=== PATIENT | female | born 1970 | race Caucasian/White ===

== ENCOUNTER 2019-04-15 17:04 | Inpatient (IN) | payer OTHER ==
[2019-04-15] MEDS ORDERED: DILTIAZEM HCL INJ 25 MG/5 ML VIAL ONE (17:27)
[2019-04-15] MEDS ORDERED: DILTIAZEM HCL/D5W 125 MG/125 ML RTUINJ IV ONE (17:28)
[2019-04-15] MEDS ORDERED: DILTIAZEM HCL INJ 25 MG/5 ML VIAL IV ONE (17:31)
--- NOTE | 2019-04-15 17:36 | ER Document Report ---
ED Cardiac - General Stated Complaint: CHEST PAIN Time Seen by Provider: 04/15/19 17:13 Mode of Arrival: Medic Information source: Patient Notes: Patient presented to EMS with chest pain and palpitations. In the field patient was cardioverted from a rate of 250 down to a rate below 100 however shortly thereafter went back up to the 160 range with A. fib with RVR on the monitor per EMS. When patient arrived here she was on a 5 mg/h drip of Cardizem heart rate was still in the 140s. Therefore patient was bolused with 20 mg IV Cardizem and increased the dose from 10 and then to 15 mg/h heart rate now is in the 80s. Patient no longer has any chest pain or shortness of breath. - HPI Patient complains to provider of: Chest pain, Palpitations Was the onset of pain: Sudden Chest pain location: Substernal Quality of pain: Constant Chest pain radiation location: denies: Left jaw, Left arm, Left shoulder, Right jaw, Right arm, Right shoulder, Neck Severity now: Mild Severity at worst: Moderate Pain level currently: 2 Cardiac risk factors: denies: Diabetes, Hypertension, Smoker, + Family history, Dyslipidemia Positive cardiac history: Yes Associated symptoms: denies: Abdominal pain Exacerbated by: Denies Relieved by: Other - cardioversion and cardizem - Related Data Allergies/Adverse Reactions: No Known Allergies Allergy (Unverified 04/15/19 17:54) Past Medical History - General Information source: Patient - Social History Smoking Status: Never Smoker Frequency of alcohol use: None Drug Abuse: None Lives with: Family Family History: None - Medical History Medical History: Other - hx svt and afib - Past Medical History Cardiac Medical History: Reports: Hx Atrial Fibrillation Pulmonary Medical History: Reports: None Review of Systems - Review of Systems Constitutional: denies: Chills, Diaphoresis Cardiovascular: Chest pain, Palpitations, Heart racing. denies: Dyspnea, Syncope, Dizziness Respiratory: denies: Cough, Hurts to breathe, Short of breath Gastrointestinal: denies: Abdomen distended, Abdominal pain -: Yes All other systems reviewed and negative Physical Exam - Vital signs Vitals: Resp 27 H 04/15/19 17:12 - General General appearance: Appears well In distress: Mild - HEENT Head: Normocephalic Eyes: Normal Conjunctiva: Normal Cornea: Normal Extraocular movements intact: Yes Pupils: PERRL - Respiratory Respiratory status: No respiratory distress Chest status: Nontender Breath sounds: Normal Chest palpation: Normal - Cardiovascular Rhythm: Irregularly irregular, Tachycardia - note after intervention still irreg irreg but not tachycardic - Abdominal Inspection: Normal Distension: No distension Bowel sounds: Normal Tenderness: Nontender Organomegaly: No organomegaly - Back Back: CVA tenderness - Extremities General upper extremity: Normal inspection General lower extremity: Normal inspection Shoulder: Normal Arm: Normal Elbow: Normal Forearm: Normal Wrist: Normal Hand: Normal Hip: Normal Thigh: Normal Knee: Normal Calf: Normal Ankle: Normal Foot: Normal - Neurological Cognition: Normal Orientation: AAOx4 Speech: Normal Cranial nerves: Normal Cerebellar coordination: Normal Motor strength normal: LUE 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 fib rate of 139 with rate related changes and LVH. After Cardizem bolus and on the drip 10 mg/h patient is in A. fib with a rate of [address] elevation flipped T or ectopy noted Discharge - Discharge Clinical Impression: Atrial fibrillation with RVR Condition: Fair Disposition: ADMITTED INPATIENT Admitting Provider: Tammie (Hospitalist) Unit Admitted: Telemetry
[2019-04-15 18:01] LABS: INTERNATIONAL RATION (INR) 1.13; PROTHROMBIN TIME 14.5 SEC (11.4-15.4)
[2019-04-15 18:07] LABS: ALBUMIN 4.3 g/dL (3.5-5.0); ALKALINE PHOSPHATASE 114 U/L (38-126); ANION GAP 15 (5-19); ASPARTATE AMINO TRANSFERASE 65 U/L (14-36); BILIRUBIN,DIRECT 0.3 mg/dL (0.0-0.4); BILIRUBIN,TOTAL 0.4 mg/dL (0.2-1.3); BLOOD UREA NITROGEN 13 mg/dL (7-20); CALCIUM 9.3 mg/dL (8.4-10.2); CARBON DIOXIDE 22 mmol/L (22-30); CHLORIDE 100 mmol/L (98-107); CREATINE KINASE 55 U/L (30-135); GLUCOSE 194 mg/dL (75-110); TOTAL PROTEIN 7.3 g/dL (6.3-8.2)
[2019-04-15] MEDS ORDERED: DILTIAZEM HCL/D5W 125 MG/125 ML RTUINJ IV PRN ×2 (18:14→20:24)
[2019-04-15 18:19] LABS: CREATINE KINASE MB 0.31 ng/mL (<4.55); TROPONIN I 0.022 ng/mL
--- NOTE | 2019-04-15 18:21 | RADIOLOGY REPORT (SQ) ---
EXAM DESCRIPTION: CHEST SINGLE VIEW COMPLETED DATE/TIME: 04/15/2019 5:54 pm REASON FOR STUDY: cp COMPARISON: None. EXAM PARAMETERS: NUMBER OF VIEWS: One view. TECHNIQUE: Single frontal radiographic view of the chest acquired. RADIATION DOSE: NA LIMITATIONS: None. FINDINGS: LUNGS AND PLEURA: No opacities, masses or pneumothorax. No pleural effusion. MEDIASTINUM AND HILAR STRUCTURES: No masses. Contour normal. HEART AND VASCULAR STRUCTURES: Heart normal in size. Normal vasculature. BONES: No acute findings. HARDWARE: Surgical clips overlie chest and axilla. OTHER: No other significant finding. IMPRESSION: No evidence of acute cardiopulmonary process. TECHNICAL DOCUMENTATION: JOB ID: [id number] [employer]- All Rights Reserved Reading location - IP/workstation name: [email or web address]
[2019-04-15 18:56] LABS: ABSOLUTE EOSINOPHILS # (AUTO) 0.5 10^3/uL (0.0-0.6); ABSOLUTE LYMPHOCYTES (AUTO) 2.9 10^3/uL (0.5-4.7); ABSOLUTE MONOCYTES (AUTO) 0.7 10^3/uL (0.1-1.4); ABSOLUTE NEUT (AUTO) 5.5 10^3/uL (1.7-8.2); BASOPHILS % (AUTO) 0.5 % (0-2); EOSINOPHILS % (AUTO) 4.8 % (0-6); HEMATOCRIT 37.3 % (36.0-47.0); HEMOGLOBIN 12.2 g/dL (12.0-15.5); MEAN CORPUSCULAR HEMOGLOBIN 26.8 pg (27.0-33.4); MEAN CORPUSCULAR HGB CONC 32.8 g/dL (32.0-36.0); MEAN CORPUSCULAR VOLUME 82 fl (80-97); MONOCYTES % (AUTO) 7.5 % (3-13); PLATELET COUNT 300 10^3/uL (150-450); RED BLOOD COUNT 4.56 10^6/uL (3.72-5.28); RED CELL DISTRIBUTION WIDTH 13.5 % (11.5-14.0); SEGMENTED NEUTROPHILS % (AUTO) 57.2 % (42-78); TOTAL CELLS COUNTED % (AUTO) 100 %; WHITE BLOOD COUNT 9.5 10^3/uL (4.0-10.5)
[2019-04-15] MEDS ORDERED: MAGNESIUM SULFATE/D5W 1 GM/100 ML RTUPB IV ONE ×2 (19:33→21:15)
[2019-04-15] MEDS ORDERED: ONDANSETRON HCL INJ/PF 4 MG/2 ML SDV IV PRN (20:17)
[2019-04-15] MEDS ORDERED: MAGNESIUM HYDROXIDE SUSP 30 ML UDCUP PO PRN (20:17)
[2019-04-15] MEDS ORDERED: MAG HYDROX/AL HYDROX/SIMETH SUSP 30 ML UDCUP PO PRN (20:17)
[2019-04-15] MEDS ORDERED: DEXTROSE 40% GEL 15 GM TUBE PO PRN ×2 (20:21)
[2019-04-15] MEDS ORDERED: DEXTROSE 50%-WATER 25 GM/50 ML DISP.SYRIN IV PRN ×2 (20:21)
[2019-04-15] MEDS ORDERED: GLUCAGON,HUMAN RECOMB 1 MG INJ IM PRN (20:21)
[2019-04-15] MEDS ORDERED: ACETAMINOPHEN 325 MG TABLET PO PRN (20:22)
[2019-04-15] MEDS ORDERED: METOPROLOL TARTRATE PF/INJ 5 MG/5 ML SDV IV PRN (20:22)
[2019-04-15] MEDS ORDERED: HYDRALAZINE HCL INJ/PF 20 MG/1 ML SDV IV PRN (20:22)
[2019-04-15] MEDS ORDERED: MORPHINE SULFATE 10 MG/ML INJ IV PRN ×4 (20:22→20:32)
[2019-04-15 21:21] LABS: FREE T3 4.69 pg/mL (2.77-5.27); FREE T4 (FREE THYROXINE) 1.34 ng/dL (0.78-2.19)
[2019-04-15 21:34] LABS: THYROID STIMULATING HORMONE 2.85 uIU/mL (0.47-4.68)
[2019-04-15] MEDS: ATORVASTATIN CALCIUM 20 MG TABLET PO SCH (21:50)
[2019-04-15] MEDS: FAMOTIDINE 20 MG TABLET PO SCH (21:50)
[2019-04-15] MEDS: ENOXAPARIN SODIUM INJ 120 MG/0.8 ML DISP.SYRIN SUBCUT SCH (21:53)
[2019-04-15] MEDS: INSULIN REG, HUMAN 100 UNIT/ML 3 ML VIAL (PYX) SUBCUT SCH (22:10)
[2019-04-15] MEDS: ZOLPIDEM TARTRATE 5 MG TABLET PO PRN (22:11)
[2019-04-15 22:31] LABS: APPEARANCE,URINE SLIGHTLY-CLOUDY; BILIRUBIN,URINE NEGATIVE (NEGATIVE); COLOR,URINE YELLOW; GLUCOSE, URINE NEGATIVE (NEGATIVE); KETONES,URINE NEGATIVE (NEGATIVE); LEUKOCYTE ESTERASE,URINE NEGATIVE (NEGATIVE); NITRITE,URINE NEGATIVE (NEGATIVE); PROTEIN,URINE NEGATIVE (NEGATIVE); URINE SPECIFIC GRAVITY 1.013; UROBILINOGEN,URINE NEGATIVE mg/dL (<2.0)
[2019-04-15 23:46] LABS: CREATINE KINASE MB 1.45 ng/mL (<4.55)
[2019-04-15 23:58] LABS: TROPONIN I 0.915 ng/mL
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
[2019-04-16] MEDS ORDERED: DILTIAZEM HCL 30 MG TABLET ONE ×2 (00:51→05:18)
[2019-04-16] MEDS ORDERED: DILTIAZEM HCL 60 MG TABLET ONE ×2 (00:51→05:18)
[2019-04-16 05:34] LABS: HEMATOCRIT 34.3 % (36.0-47.0); HEMOGLOBIN 11.4 g/dL (12.0-15.5); MEAN CORPUSCULAR HEMOGLOBIN 27.2 pg (27.0-33.4); MEAN CORPUSCULAR HGB CONC 33.3 g/dL (32.0-36.0); MEAN CORPUSCULAR VOLUME 82 fl (80-97); PLATELET COUNT 283 10^3/uL (150-450); RED CELL DISTRIBUTION WIDTH 13.7 % (11.5-14.0)
[2019-04-16 05:53] LABS: ANION GAP 11 (5-19); BLOOD UREA NITROGEN 13 mg/dL (7-20); CALCIUM 8.9 mg/dL (8.4-10.2); CARBON DIOXIDE 23 mmol/L (22-30); CHLORIDE 103 mmol/L (98-107); CHOLESTEROL 118.86 mg/dL (0-200); GLUCOSE 193 mg/dL (75-110); POTASSIUM 3.8 mmol/L (3.6-5.0); TRIGLYCERIDES 228 mg/dL (<150)
[2019-04-16] MEDS ORDERED: DILTIAZEM HCL 90 MG TABLET PO SCH ×2 (06:00→14:00)
[2019-04-16 06:05] LABS: CREATINE KINASE MB 1.7 ng/mL (<4.55); DIRECT LDL 81 mg/dL (<100); TROPONIN I 0.622 ng/mL
[2019-04-16 06:07] LABS: VLDL CHOLESTEROL 45.6 mg/dL (10-31)
[2019-04-16] MEDS ORDERED: METFORMIN HCL 500 MG TABLET PO SCH (08:00)
[2019-04-16] MEDS ORDERED: SITAGLIPTIN PHOSPHATE 50 MG TABLET PO SCH (08:00)
[2019-04-16] MEDS: INSULIN REG, HUMAN 100 UNIT/ML 3 ML VIAL (PYX) SUBCUT SCH ×4 (08:46→21:48)
[2019-04-16] MEDS: DOCUSATE SODIUM 100 MG CAPSULE PO SCH ×2 (09:15→17:20)
[2019-04-16] MEDS: INSULIN GLARGINE,HUM.REC.ANLOG 1,000 UNIT/10 ML VIAL SUBCUT SCH ×2 (09:15→21:48)
[2019-04-16] MEDS: FAMOTIDINE 20 MG TABLET PO SCH ×2 (09:15→21:48)
[2019-04-16] MEDS: ENOXAPARIN SODIUM INJ 120 MG/0.8 ML DISP.SYRIN SUBCUT SCH (09:15)
--- NOTE | 2019-04-16 09:18 | PDOC PROGRESS REPORT ---
Subjective Progress Note for:: 04/16/19 Subjective:: 48 year old female who presented to the emergency room via EMS with a acute heart palpitations. She admits the sudden onset of palpitations this afternoon for which she summoned EMS immediately. Palpitations were associated with a constant, moderately intense substernal chest pressure without radiation and moderate dyspnea at rest worsened with any exertion. She denies other associated or accompanying signs and symptoms. She admits a prior similar episode due to a paroxysmal occurrence of atrial fibrillation. She denies identification of any aggravating or ameliorating factors for her heart palpitations. EMS initially treated the patient with cardioversion (as her atrial fibrillation heart rate was greater than 250 and she was symptomatic) followed by a diltiazem bolus and infusion. Upon her arrival in the emergency room patient was re-bolused with diltiazem and her infusion rate was increased in order to gain adequate control of her atrial fibrillation with rapid ventricular response. Patient was subsequently admitted to the IMCU for further evaluation treatment. 04/16/2019-patient admitted with Beatris hobson with RVR cardioverted by EMS on the way to the hospital received IV Cardizem in the ER now on p.o. Cardizem with heart rate of around 57. Asymptomatic. Comfortable in the bed communicating well. Reason For Visit: PAROXYSMAL ATRIAL FIBRILLATION WITH RAPID Physical Exam Vital Signs: Temp Pulse Resp BP Pulse Ox 97.4 F 57 L 18 123/59 L 95 04/16/19 08:09 04/16/19 08:09 04/16/19 08:09 04/16/19 08:09 04/16/19 08:09 Intake & Output 04/15/19 04/16/19 04/17/19 06:59 06:59 06:59 Intake Total 535 Balance 535 Weight 109 kg General appearance: PRESENT: no acute distress, morbidly obese Head exam: PRESENT: atraumatic Eye exam: PRESENT: PERRLA Mouth exam: PRESENT: moist, tongue midline Teeth exam: PRESENT: poor dentation Neck exam: ABSENT: carotid bruit, JVD, lymphadenopathy, thyromegaly Respiratory exam: PRESENT: clear to auscultation neema. ABSENT: rales, rhonchi, wheezes Cardiovascular exam: PRESENT: bradycardia. ABSENT: systolic murmur Pulses: PRESENT: normal dorsalis pedis pul GI/Abdominal exam: PRESENT: normal bowel sounds, soft. ABSENT: distended, guarding, mass, organolmegaly, rebound, tenderness Rectal exam: PRESENT: deferred Extremities exam: PRESENT: full ROM. ABSENT: calf tenderness, clubbing, pedal edema Neurological exam: PRESENT: alert, awake, oriented to person, oriented to place, oriented to time, oriented to situation, CN II-XII grossly intact. ABSENT: motor sensory deficit Psychiatric exam: PRESENT: appropriate affect, normal mood. ABSENT: homicidal ideation, suicidal ideation Results Laboratory Results: 04/16/19 05:21 04/16/19 05:21 04/15/19 04/15/19 04/15/19 17:17 17:17 17:17 WBC 9.5 RBC 4.56 Hgb 12.2 Hct 37.3 MCV 82 MCH 26.8 L MCHC 32.8 RDW 13.5 Plt Count 300 Seg Neutrophils % 57.2 Sodium 137.3 Potassium 4.0 Chloride 100 Carbon Dioxide 22 Anion Gap 15 BUN 13 Creatinine 0.74 Est GFR ( Amer) > 60 Glucose 194 H Lactic Acid Calcium 9.3 Magnesium 1.3 L Total Bilirubin 0.4 AST 65 H Alkaline Phosphatase 114 Total Protein 7.3 Albumin 4.3 Triglycerides Cholesterol LDL Cholesterol Direct VLDL Cholesterol HDL Cholesterol TSH 2.85 Free T4 1.34 Free T3 pg/mL 4.69 Urine Color Urine Appearance Urine pH Ur Specific Mcdavid Urine Protein Urine Glucose (UA) Urine Ketones Urine Blood Urine Nitrite Ur Leukocyte Esterase Urine WBC (Auto) Urine RBC (Auto) 04/15/19 04/15/19 04/16/19 18:30 19:00 05:21 WBC 8.0 RBC 4.20 Hgb 11.4 L Hct 34.3 L MCV 82 MCH 27.2 MCHC 33.3 RDW 13.7 Plt Count 283 Seg Neutrophils % Sodium Potassium Chloride Carbon Dioxide Anion Gap BUN Creatinine Est GFR ( Amer) Glucose Lactic Acid 3.2 H Calcium Magnesium Total Bilirubin AST Alkaline Phosphatase Total Protein Albumin Triglycerides Cholesterol LDL Cholesterol Direct VLDL Cholesterol HDL Cholesterol TSH Free T4 Free T3 pg/mL Urine Color YELLOW Urine Appearance SLIGHTLY-CLOUDY Urine pH 5.0 Ur Specific Mcdavid 1.013 Urine Protein NEGATIVE Urine Glucose (UA) NEGATIVE Urine Ketones NEGATIVE Urine Blood NEGATIVE Urine Nitrite NEGATIVE Ur Leukocyte Esterase NEGATIVE Urine WBC (Auto) 2 Urine RBC (Auto) 1 04/16/19 05:21 WBC RBC Hgb Hct MCV MCH MCHC RDW Plt Count Seg Neutrophils % Sodium 137.4 Potassium 3.8 Chloride 103 Carbon Dioxide 23 Anion Gap 11 BUN 13 Creatinine 0.60 Est GFR ( Amer) > 60 Glucose 193 H Lactic Acid Calcium 8.9 Magnesium 2.1 Total Bilirubin AST Alkaline Phosphatase Total Protein Albumin Triglycerides 228 H Cholesterol 118.86 LDL Cholesterol Direct 81 VLDL Cholesterol 45.6 H HDL Cholesterol 29 L TSH Free T4 Free T3 pg/mL Urine Color Urine Appearance Urine pH Ur Specific Mcdavid Urine Protein Urine Glucose (UA) Urine Ketones Urine Blood Urine Nitrite Ur Leukocyte Esterase Urine WBC (Auto) Urine RBC (Auto) 04/15/19 04/15/19 04/15/19 17:17 17:17 23:09 Creatine Kinase 55 63 CK-MB (CK-2) 0.31 Troponin I 0.022 04/15/19 04/16/19 04/16/19 23:09 05:21 05:21 Creatine Kinase 58 CK-MB (CK-2) 1.45 1.70 Troponin I 0.915 0.622 Impressions: Chest X-Ray 04/15/19 17:35 IMPRESSION: No evidence of acute cardiopulmonary process. Assessment and Plan - Diagnosis (1) Paroxysmal atrial fibrillation with rapid ventricular response Is this a current diagnosis for this admission?: Yes Plan: Patient's atrial fibrillation will be treated with a diltiazem infusion and conversion to oral diltiazem. A cardiology consultation with Dr. Gu will be obtained for possible consideration of cardioversion or determination of ongoing therapy. Patient will be treated with Lovenox 1 mg/kg subcu every 12 hours. Patient be monitored closely on IMCU. Daily metabolic profiles with magnesium levels and CBCs will be obtained. A thyroid profile will be obtained to evaluate the patient's thyroid status as it may relate to her atrial fibrillation. 04/16/2019-patient is in sinus rhythm with heart rate is around 60. On p.o. Cardizem 90 mg every 6 hours. Cardiology consult was requested. Echocardiogram pending. Plan is to decrease the Cardizem to 90 mg p.o. every 8 hours. Plan is to continue to closely monitor her until tomorrow. TSH is 2.85 within normal range. On treatment dose of Lovenox 110 mg subcu every 12 hours. (2) Chest pain Qualifiers: Chest pain type: unspecified Qualified Code(s): R07.9 - Chest pain, unspecified Is this a current diagnosis for this admission?: Yes Plan: Serial cardiac enzymes and EKGs will be performed to evaluate her chest pain. Patient will be on continuous monitoring on IMCU. Morphine sulfate 2 to 4 mg IV every 2 hours will be given on a as needed basis via sliding scale for chest pain. A lipid profile will be obtained to evaluate the patient's ongoing cardiac risk. 04/16/2019-patient initially came in with chest pain 04/16 Most likely secondary to paroxysmal A. fib with RVR. Patient is chest pain- free at the moment. Latest troponin is 0.622. Trending down. Plan is to continue to closely trend cardiac enzymes. (3) Diabetes mellitus type 2 in obese Is this a current diagnosis for this admission?: Yes Plan: Hemoglobin A1c will be obtained to evaluate the patient's blood sugar status. Accu-Cheks will be performed before meals and at bedtime and sliding scale insulin will be used for hyperglycemic readings and hypoglycemic readings will be treated per the hypoglycemia protocol. Patient will be continued on her usual diabetic therapy and a diabetic diet. 04/16/2019-patient has history of type 2 diabetes mellitus latest blood sugar is 193, hemoglobin A1c 7.6. Patient is presently on insulin sliding scale before meals and at bedtime Metformin is going to be on hold and started on Lantus 10 units subcu twice a day. Diet exercise weight loss lifestyle modifications discussed with the patient. (4) Hypomagnesemia Is this a current diagnosis for this admission?: Yes Plan: Magnesium repletion will be accomplished with intravenous magnesium sulfate. Magnesium levels be monitored closely throughout her hospital stay. 04/16/2019-latest serum magnesium level is 2.1 hypomagnesemia is resolved. (5) Hyperlipidemia Qualifiers: Hyperlipidemia type: unspecified Qualified Code(s): E78.5 - Hyperlipidemia, unspecified Is this a current diagnosis for this admission?: Yes Plan: A lipid profile will be obtained to assess the efficacy of the patient's current therapy. 04/16/2019-lipid panel was done triglycerides are 228, cholesterol is 118, LDL is 81, HDL is 29. Patient is presently on atorvastatin. (6) Obesity (BMI 30-39.9) Is this a current diagnosis for this admission?: No Plan: 04/16/2019-patient BMI is more than 35 diet exercise weight loss lifestyle modifications are discussed with the patient. - Time Time Spent with patient: 15-24 minutes Medications reviewed and adjusted accordingly: Yes Anticipated discharge: Home
[2019-04-16 12:24] LABS: CREATINE KINASE MB 1.4 ng/mL (<4.55); TROPONIN I 0.332 ng/mL
[2019-04-16] MEDS ORDERED: SOTALOL HCL 80 MG TABLET PO ONE (13:30)
--- NOTE | 2019-04-16 14:28 | EKG REPORT ---
SEVERITY:- ABNORMAL ECG - SINUS RHYTHM LEFT AXIS DEVIATION LEFT VENTRICULAR HYPERTROPHY BORDERLINE T ABNORMALITIES, INFERIOR LEADS BORDERLINE PROLONGED QT INTERVAL : Confirmed by: Rick Burrows 16-Apr-2019 14:27:27
--- NOTE | 2019-04-16 14:28 | EKG REPORT ---
SEVERITY:- ABNORMAL ECG - ATRIAL FIBRILLATION, V-RATE 44-91 LEFT ANTERIOR FASCICULAR BLOCK LEFT VENTRICULAR HYPERTROPHY NONSPECIFIC T ABNORMALITIES, INFERIOR LEADS : Confirmed by: Rick Burrows 16-Apr-2019 14:27:40
--- NOTE | 2019-04-16 14:28 | EKG REPORT ---
SEVERITY:- ABNORMAL ECG - ATRIAL FIBRILLATION, V-RATE [id number] LEFT AXIS DEVIATION LEFT VENTRICULAR HYPERTROPHY BORDERLINE PROLONGED QT INTERVAL : Confirmed by: Rick Burrows 16-Apr-2019 14:27:55
--- NOTE | 2019-04-16 14:28 | EKG REPORT ---
SEVERITY:- ABNORMAL ECG - ATRIAL FIBRILLATION LEFT AXIS DEVIATION LEFT VENTRICULAR HYPERTROPHY BORDERLINE T ABNORMALITIES, INFERIOR LEADS : Confirmed by: Rick Burrows 16-Apr-2019 14:27:45
[2019-04-16] MEDS ORDERED: ONDANSETRON HCL INJ/PF 4 MG/2 ML SDV IV PRN (15:00)
[2019-04-16] MEDS: APIXABAN 5 MG TABLET PO SCH (17:20)
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
[2019-04-16] MEDS: ATORVASTATIN CALCIUM 20 MG TABLET PO SCH (21:48)
[2019-04-16] MEDS: ZOLPIDEM TARTRATE 5 MG TABLET PO PRN (21:50)
[2019-04-17 04:50] LABS: HEMATOCRIT 34.4 % (36.0-47.0); HEMOGLOBIN 11.3 g/dL (12.0-15.5); MEAN CORPUSCULAR HEMOGLOBIN 26.8 pg (27.0-33.4); MEAN CORPUSCULAR HGB CONC 32.9 g/dL (32.0-36.0); MEAN CORPUSCULAR VOLUME 82 fl (80-97); PLATELET COUNT 285 10^3/uL (150-450); RED BLOOD COUNT 4.22 10^6/uL (3.72-5.28); RED CELL DISTRIBUTION WIDTH 13.5 % (11.5-14.0); WHITE BLOOD COUNT 7.7 10^3/uL (4.0-10.5)
[2019-04-17 05:03] LABS: ANION GAP 10 (5-19); BLOOD UREA NITROGEN 16 mg/dL (7-20); CALCIUM 8.9 mg/dL (8.4-10.2); CARBON DIOXIDE 25 mmol/L (22-30); CHLORIDE 102 mmol/L (98-107); GLUCOSE 186 mg/dL (75-110)
--- NOTE | 2019-04-17 08:46 | PDOC PROGRESS REPORT ---
Subjective Progress Note for:: 04/17/19 Subjective:: 48 year old female who presented to the emergency room via EMS with a acute heart palpitations. She admits the sudden onset of palpitations this afternoon for which she summoned EMS immediately. Palpitations were associated with a constant, moderately intense substernal chest pressure without radiation and moderate dyspnea at rest worsened with any exertion. She denies other associated or accompanying signs and symptoms. She admits a prior similar episode due to a paroxysmal occurrence of atrial fibrillation. She denies identification of any aggravating or ameliorating factors for her heart palpitations. EMS initially treated the patient with cardioversion (as her atrial fibrillation heart rate was greater than 250 and she was symptomatic) followed by a diltiazem bolus and infusion. Upon her arrival in the emergency room patient was re-bolused with diltiazem and her infusion rate was increased in order to gain adequate control of her atrial fibrillation with rapid ventricular response. Patient was subsequently admitted to the IMCU for further evaluation treatment. 04/16/2019-patient admitted with Beatris hobson with RVR cardioverted by EMS on the way to the hospital received IV Cardizem in the ER now on p.o. Cardizem with heart rate of around 57. Asymptomatic. Comfortable in the bed communicating well. Reason For Visit: PAROXYSMAL ATRIAL FIBRILLATION WITH RAPID Physical Exam Vital Signs: Temp Pulse Resp BP Pulse Ox 97.7 F 78 20 121/84 96 04/17/19 03:52 04/17/19 07:00 04/17/19 03:52 04/17/19 03:52 04/17/19 03:52 Intake & Output 04/16/19 04/17/19 04/18/19 06:59 06:59 06:59 Intake Total 535 590 Balance 535 590 Weight 109 kg 115.6 kg General appearance: PRESENT: no acute distress, obese Head exam: PRESENT: atraumatic Eye exam: PRESENT: PERRLA Mouth exam: PRESENT: moist, tongue midline Teeth exam: PRESENT: poor dentation Neck exam: ABSENT: carotid bruit, JVD, lymphadenopathy, thyromegaly Respiratory exam: PRESENT: decreased breath sounds Cardiovascular exam: PRESENT: RRR. ABSENT: diastolic murmur, rubs, systolic murmur GI/Abdominal exam: PRESENT: normal bowel sounds, soft. ABSENT: distended, guarding, mass, organolmegaly, rebound, tenderness Rectal exam: PRESENT: deferred Extremities exam: PRESENT: full ROM. ABSENT: calf tenderness, clubbing, pedal edema Neurological exam: PRESENT: alert, awake, oriented to person, oriented to place, oriented to time, oriented to situation, CN II-XII grossly intact. ABSENT: motor sensory deficit Psychiatric exam: PRESENT: appropriate affect, normal mood. ABSENT: homicidal ideation, suicidal ideation Skin exam: PRESENT: dry, intact, warm. ABSENT: cyanosis, rash Results Laboratory Results: 04/17/19 04:25 04/17/19 04:25 04/17/19 04/17/19 04:25 04:25 WBC 7.7 RBC 4.22 Hgb 11.3 L Hct 34.4 L MCV 82 MCH 26.8 L MCHC 32.9 RDW 13.5 Plt Count 285 Sodium 136.8 L Potassium 4.0 Chloride 102 Carbon Dioxide 25 Anion Gap 10 BUN 16 Creatinine 0.64 Est GFR ( Amer) > 60 Glucose 186 H Calcium 8.9 Magnesium 1.8 04/15/19 04/15/19 04/15/19 17:17 17:17 23:09 Creatine Kinase 55 63 CK-MB (CK-2) 0.31 Troponin I 0.022 NT-Pro-B Natriuret Pep 04/15/19 04/16/19 04/16/19 23:09 05:21 05:21 Creatine Kinase 58 CK-MB (CK-2) 1.45 1.70 Troponin I 0.915 0.622 NT-Pro-B Natriuret Pep 04/16/19 04/16/19 04/17/19 11:18 11:18 04:25 Creatine Kinase 52 CK-MB (CK-2) 1.40 Troponin I 0.332 NT-Pro-B Natriuret Pep 183 H Impressions: Chest X-Ray 04/15/19 17:35 IMPRESSION: No evidence of acute cardiopulmonary process. Assessment and Plan - Diagnosis (1) Paroxysmal atrial fibrillation with rapid ventricular response Is this a current diagnosis for this admission?: Yes Plan: Patient's atrial fibrillation will be treated with a diltiazem infusion and conversion to oral diltiazem. A cardiology consultation with Dr. Gu will be obtained for possible consideration of cardioversion or determination of ongoing therapy. Patient will be treated with Lovenox 1 mg/kg subcu every 12 hours. Patient be monitored closely on IMCU. Daily metabolic profiles with magnesium levels and CBCs will be obtained. A thyroid profile will be obtained to evaluate the patient's thyroid status as it may relate to her atrial fibrillation. 04/16/2019-patient is in sinus rhythm with heart rate is around 60. On p.o. Cardizem 90 mg every 6 hours. Cardiology consult was requested. Echocardiogram pending. Plan is to decrease the Cardizem to 90 mg p.o. every 8 hours. Plan is to continue to closely monitor her until tomorrow. TSH is 2.85 within normal range. On treatment dose of Lovenox 110 mg subcu every 12 hours. 04/17/[id number]-lglj-old female admitted for paroxysmal atrial fibrillation now in sinus rhythm. Presently on sotalol and also on Eliquis 5 mg p.o. twice daily. Plan is to continue the present management. (2) Chest pain Qualifiers: Chest pain type: unspecified Qualified Code(s): R07.9 - Chest pain, unspecified Is this a current diagnosis for this admission?: Yes Plan: Serial cardiac enzymes and EKGs will be performed to evaluate her chest pain. Patient will be on continuous monitoring on IMCU. Morphine sulfate 2 to 4 mg IV every 2 hours will be given on a as needed basis via sliding scale for chest pain. A lipid profile will be obtained to evaluate the patient's ongoing cardiac risk. 04/16/2019-patient initially came in with chest pain 04/16 Most likely secondary to paroxysmal A. fib with RVR. Patient is chest pain- free at the moment. Latest troponin is 0.622. Trending down. Plan is to continue to closely trend cardiac enzymes. 04/17/2019-patient is chest pain-free. Initial troponins are slightly elevated most likely secondary to demand and supply mismatch secondary to atrial fibri llation. (3) Diabetes mellitus type 2 in obese Is this a current diagnosis for this admission?: Yes Plan: Hemoglobin A1c will be obtained to evaluate the patient's blood sugar status. Accu-Cheks will be performed before meals and at bedtime and sliding scale insulin will be used for hyperglycemic readings and hypoglycemic readings will be treated per the hypoglycemia protocol. Patient will be continued on her usual diabetic therapy and a diabetic diet. 04/16/2019-patient has history of type 2 diabetes mellitus latest blood sugar is 193, hemoglobin A1c 7.6. Patient is presently on insulin sliding scale before meals and at bedtime Metformin is going to be on hold and started on Lantus 10 units subcu twice a day. Diet exercise weight loss lifestyle modifications discussed with the patient. 04/17/2019-patient has history of habitus mellitus latest blood sugar is 186. Presently on insulin sliding scale on the Lantus to 10 units subcu twice a day plan is to continue the present management. Hemoglobin A1c is 7.6. (4) Hypomagnesemia Is this a current diagnosis for this admission?: Yes Plan: Magnesium repletion will be accomplished with intravenous magnesium sulfate. Magnesium levels be monitored closely throughout her hospital stay. 04/16/2019-latest serum magnesium level is 2.1 hypomagnesemia is resolved. (5) Hyperlipidemia Qualifiers: Hyperlipidemia type: unspecified Qualified Code(s): E78.5 - Hyperlipidemia, unspecified Is this a current diagnosis for this admission?: Yes (6) Obesity (BMI 30-39.9) Is this a current diagnosis for this admission?: No - Time Time Spent with patient: 25-34 minutes Medications reviewed and adjusted accordingly: Yes Anticipated discharge: Home
[2019-04-17] MEDS: APIXABAN 5 MG TABLET PO SCH ×2 (09:25→17:28)
[2019-04-17] MEDS: INSULIN REG, HUMAN 100 UNIT/ML 3 ML VIAL (PYX) SUBCUT SCH ×4 (09:25→21:34)
[2019-04-17] MEDS: FAMOTIDINE 20 MG TABLET PO SCH ×2 (09:25→21:34)
[2019-04-17] MEDS: DOCUSATE SODIUM 100 MG CAPSULE PO SCH ×2 (09:25→17:27)
[2019-04-17] MEDS: MAGNESIUM OXIDE 400 MG TABLET PO SCH ×2 (09:25→17:29)
[2019-04-17] MEDS: INSULIN GLARGINE,HUM.REC.ANLOG 1,000 UNIT/10 ML VIAL SUBCUT SCH ×2 (09:26→21:34)
[2019-04-17] MEDS: ZOLPIDEM TARTRATE 5 MG TABLET PO PRN (21:34)
[2019-04-17] MEDS: ATORVASTATIN CALCIUM 20 MG TABLET PO SCH (21:34)
--- NOTE | 2019-04-17 22:15 | Progress Note ---
Provider Note Provider Note: CARDIOLOGY PROGRESS NOTE by Dr. Misty King on 04/17/2019 SUBJECTIVE: The patient remains in sinus rhythm. There is no recurrence of atrial fibrillation. There is no chest pain or discomfort. There is no shortness of breath. There is no PND orthopnea. There is no leg edema. There is no bleeding on Eliquis. There is no TIA CVA symptoms. There is no proarrhythmia on sotalol. PHYSICAL EXAMINATION: The patient is moderately obese. In no acute distress. She is well-groomed Selected Entries 04/16/19 04/17/19 11:57 12:32 Temperature 98.7 F 98.0 F Temperature Oral Oral Source Pulse Rate 79 90 Respiratory 18 16 Rate Blood Pressure 125/98 H 157/83 H Blood Pressure 107 107 Mean BP Location Left Arm Left Arm BP Position Supine Supine O2 Sat by Pulse 98 96 Oximetry Oxygen Delivery Room Air Room Air Method HEAD: Is atraumatic normocephalic. EYES: Pupils are equal round regular reactive to light accommodation. Extraocular movements are normal. There is no conjunctival pallor. There is no scleral icterus. EARS: Tympanic membranes are intact. External auditory canals are clear. NOSE: Nasal mucous membranes are moist. There is no inflammation of the nasal mucous membrane. MOUTH: Mucous membranes of the mouth and tongue are moist. There is no ulcers. THROAT: There is no redness of the oropharynx. There is no exudates. SKIN: There is no skin rashes or skin lesions. There is no petechia or ecchymosis NECK: Is supple there is no JVD. Carotids are equal there is no bruit. There is no lymphadenopathy. There is no goiter. There is no accessory muscle respiration use. Trachea central. LUNGS: Clear to auscultation percussion without any rhonchi rales wheezing. HEART: S1-S2 is heard. S1 is of normal intensity. There is no S3 gallop. There is no S4 gallop. There is systolic murmur left sternal border and the apex there is no rub. ABDOMEN: Is soft. Mildly obese. There is no paraspinal megaly. Bowel sounds well heard. EXTREMITIES: Femorals are deep but well felt. There is no femoral bruits. There is no pedal edema. Leg pulses are well felt. There is no DVT or cellulitis. There is no calf tenderness. There is no cyanosis or clubbing [employer]: The patient is conscious awake alert oriented x3 with no focal deficit. PSYCHIATRIC: The patient judgment and insight are intact her affect is normal. SINUS RHYTHM [LAD] . LEFT AXIS DEVIATION [LVH] . LEFT VENTRICULAR HYPERTROPHY [T0IN] . BORDERLINE T ABNORMALITIES, INFERIOR LEADS [LQT] . QTC INTERVAL is 517. Yesterday it was 505. Will observe. Labs- All tests 24 hr 04/17/19 04/17/19 04/17/19 04:25 04:25 04:25 WBC 7.7 RBC 4.22 Hgb 11.3 L Hct 34.4 L MCV 82 MCH 26.8 L MCHC 32.9 RDW 13.5 Plt Count 285 Sodium 136.8 L Potassium 4.0 Chloride 102 Carbon Dioxide 25 Anion Gap 10 BUN 16 Creatinine 0.64 Est GFR ( Amer) > 60 Est GFR (MDRD) Non-Af > 60 Glucose 186 H POC Glucose Calcium 8.9 Magnesium 1.8 NT-Pro-B Natriuret Pep 183 H 04/17/19 04/17/19 04/17/19 07:34 12:30 15:19 WBC RBC Hgb Hct MCV MCH MCHC RDW Plt Count Sodium Potassium Chloride Carbon Dioxide Anion Gap BUN Creatinine Est GFR ( Amer) Est GFR (MDRD) Non-Af Glucose POC Glucose 168 H 165 H 209 H Calcium Magnesium NT-Pro-B Natriuret Pep 04/17/19 20:55 WBC RBC Hgb Hct MCV MCH MCHC RDW Plt Count Sodium Potassium Chloride Carbon Dioxide Anion Gap BUN Creatinine Est GFR ( Amer) Est GFR (MDRD) Non-Af Glucose POC Glucose 155 H Calcium Magnesium NT-Pro-B Natriuret Pep Chest X-Ray 04/15/19 17:35 IMPRESSION: No evidence of acute cardiopulmonary process. IMPRESSION/RECOMMENDATION: 1. Paroxysmal atrial fibrillation. This is the patient's second episode. I do not see any precipitating factors, and the patient's thyroid function tests are within normal limits. Hence we will start the patient on sotalol, with careful watch on proarrhythmias and also daily EKGs for QTC vigilance, and also start the patient on Eliquis 5 mill grams p.o. twice daily. 2. Elevated troponin: No evidence of non-ST elevation GA. This is secondary to the patient's electrical cardioversion, and the patient atrial fibrillation with rapid ventricular response. Later would recommend that the patient have an IV Lexiscan cardiac stress test. This can be done as an outpatient. 3. Diabetes mellitus: Type II [id number]. Continue current medication and Accu-Cheks. 4. Dyslipidemia and hypertriglyceridemia. Note that the patient's LDL levels a good. The HDL levels are low. The patient's triglycerides levels are very high. Would recommend dietary consult. And tight control of her blood sugars 5. Obesity. Medications reviewed. Management plan discussed with attending physician on the case. Medical decision making is of moderate to high complexity. Will follow. 40 minutes spent on this patient with more than 50% of time spent in direct patient care.
[2019-04-17] MEDS ORDERED: SOTALOL HCL 80 MG TABLET PO ONE (22:45)
[2019-04-18 05:50] LABS: ABSOLUTE EOSINOPHILS # (AUTO) 0.5 10^3/uL (0.0-0.6); ABSOLUTE LYMPHOCYTES (AUTO) 2.4 10^3/uL (0.5-4.7); ABSOLUTE MONOCYTES (AUTO) 0.5 10^3/uL (0.1-1.4); ABSOLUTE NEUT (AUTO) 3.9 10^3/uL (1.7-8.2); BASOPHILS % (AUTO) 0.4 % (0-2); EOSINOPHILS % (AUTO) 6.3 % (0-6); HEMATOCRIT 35.2 % (36.0-47.0); HEMOGLOBIN 11.6 g/dL (12.0-15.5); MEAN CORPUSCULAR HGB CONC 33.1 g/dL (32.0-36.0); MEAN CORPUSCULAR VOLUME 82 fl (80-97); MONOCYTES % (AUTO) 7.2 % (3-13); PLATELET COUNT 273 10^3/uL (150-450); RED BLOOD COUNT 4.31 10^6/uL (3.72-5.28); RED CELL DISTRIBUTION WIDTH 13.4 % (11.5-14.0); SEGMENTED NEUTROPHILS % (AUTO) 53.1 % (42-78); TOTAL CELLS COUNTED % (AUTO) 100 %; WHITE BLOOD COUNT 7.4 10^3/uL (4.0-10.5)
[2019-04-18 06:08] LABS: ALKALINE PHOSPHATASE 93 U/L (38-126); ANION GAP 12 (5-19); ASPARTATE AMINO TRANSFERASE 47 U/L (14-36); BILIRUBIN,DIRECT 0.2 mg/dL (0.0-0.4); BILIRUBIN,TOTAL 0.3 mg/dL (0.2-1.3); BLOOD UREA NITROGEN 13 mg/dL (7-20); CALCIUM 9.3 mg/dL (8.4-10.2); CARBON DIOXIDE 26 mmol/L (22-30); CHLORIDE 100 mmol/L (98-107); GLUCOSE 154 mg/dL (75-110); POTASSIUM 4.6 mmol/L (3.6-5.0)
--- NOTE | 2019-04-18 08:58 | PDOC PROGRESS REPORT ---
Subjective Progress Note for:: 04/18/19 Subjective:: 48 year old female who presented to the emergency room via EMS with a acute heart palpitations. She admits the sudden onset of palpitations this afternoon for which she summoned EMS immediately. Palpitations were associated with a constant, moderately intense substernal chest pressure without radiation and moderate dyspnea at rest worsened with any exertion. She denies other associated or accompanying signs and symptoms. She admits a prior similar episode due to a paroxysmal occurrence of atrial fibrillation. She denies identification of any aggravating or ameliorating factors for her heart palpitations. EMS initially treated the patient with cardioversion (as her atrial fibrillation heart rate was greater than 250 and she was symptomatic) followed by a diltiazem bolus and infusion. Upon her arrival in the emergency room patient was re-bolused with diltiazem and her infusion rate was increased in order to gain adequate control of her atrial fibrillation with rapid ventricular response. Patient was subsequently admitted to the IMCU for further evaluation treatment. 04/16/2019-patient admitted with A. fib with RVR cardioverted by EMS on the way to the hospital received IV Cardizem in the ER now on p.o. Cardizem with heart rate of around 57. Asymptomatic. Comfortable in the bed communicating well. 04/[id number]-cjjl-old female admitted with the paroxysmal atrial fibrillation she was started on sotalol and Eliquis. We are checking the daily EKGs. No acute events in the last 24 hours. Patient is comfortable in the bed communicating well. Patient may need to stay until tomorrow morning prior to discharge. Reason For Visit: PAROXYSMAL ATRIAL FIBRILLATION WITH RAPID Physical Exam Vital Signs: Temp Pulse Resp BP Pulse Ox 97.7 F 80 16 122/95 H 94 04/18/19 03:59 04/18/19 06:50 04/18/19 03:59 04/18/19 03:59 04/18/19 03:59 Intake & Output 04/17/19 04/18/19 04/19/19 06:59 06:59 06:59 Intake Total 590 840 Balance 590 840 Weight 115.6 kg 114.1 kg General appearance: PRESENT: no acute distress, cooperative Head exam: PRESENT: atraumatic Eye exam: PRESENT: PERRLA Mouth exam: PRESENT: dry mucosa Teeth exam: PRESENT: poor dentation Neck exam: ABSENT: carotid bruit, JVD, lymphadenopathy, thyromegaly Respiratory exam: PRESENT: decreased breath sounds Cardiovascular exam: PRESENT: RRR. ABSENT: diastolic murmur, rubs, systolic murmur GI/Abdominal exam: PRESENT: normal bowel sounds, soft. ABSENT: distended, guarding, mass, organolmegaly, rebound, tenderness Rectal exam: PRESENT: deferred Neurological exam: PRESENT: alert, awake, oriented to person, oriented to place, oriented to time, oriented to situation, CN II-XII grossly intact. ABSENT: motor sensory deficit Psychiatric exam: PRESENT: appropriate affect, normal mood. ABSENT: homicidal ideation, suicidal ideation Results Laboratory Results: 04/18/19 05:26 04/18/19 05:26 04/18/19 04/18/19 05:26 05:26 WBC 7.4 RBC 4.31 Hgb 11.6 L Hct 35.2 L MCV 82 MCH 27.0 MCHC 33.1 RDW 13.4 Plt Count 273 Seg Neutrophils % 53.1 Sodium 137.5 Potassium 4.6 Chloride 100 Carbon Dioxide 26 Anion Gap 12 BUN 13 Creatinine 0.53 Est GFR ( Amer) > 60 Glucose 154 H Calcium 9.3 Magnesium 2.0 Total Bilirubin 0.3 AST 47 H Alkaline Phosphatase 93 Total Protein 7.0 Albumin 4.0 04/15/19 04/15/19 04/15/19 17:17 17:17 23:09 Creatine Kinase 55 63 CK-MB (CK-2) 0.31 Troponin I 0.022 NT-Pro-B Natriuret Pep 04/15/19 04/16/19 04/16/19 23:09 05:21 05:21 Creatine Kinase 58 CK-MB (CK-2) 1.45 1.70 Troponin I 0.915 0.622 NT-Pro-B Natriuret Pep 04/16/19 04/16/19 04/17/19 11:18 11:18 04:25 Creatine Kinase 52 CK-MB (CK-2) 1.40 Troponin I 0.332 NT-Pro-B Natriuret Pep 183 H 04/18/19 05:26 Creatine Kinase CK-MB (CK-2) Troponin I 0.048 NT-Pro-B Natriuret Pep Impressions: Chest X-Ray 04/15/19 17:35 IMPRESSION: No evidence of acute cardiopulmonary process. Assessment and Plan - Diagnosis (1) Paroxysmal atrial fibrillation with rapid ventricular response Is this a current diagnosis for this admission?: Yes Plan: Patient's atrial fibrillation will be treated with a diltiazem infusion and conversion to oral diltiazem. A cardiology consultation with Dr. Gu will be obtained for possible consideration of cardioversion or determination of ongoing therapy. Patient will be treated with Lovenox 1 mg/kg subcu every 12 hours. Patient be monitored closely on IMCU. Daily metabolic profiles with magnesium levels and CBCs will be obtained. A thyroid profile will be obtained to evaluate the patient's thyroid status as it may relate to her atrial fibrillation. 04/16/2019-patient is in sinus rhythm with heart rate is around 60. On p.o. Cardizem 90 mg every 6 hours. Cardiology consult was requested. Echocardiogram pending. Plan is to decrease the Cardizem to 90 mg p.o. every 8 hours. Plan is to continue to closely monitor her until tomorrow. TSH is 2.85 within normal range. On treatment dose of Lovenox 110 mg subcu every 12 hours. 04/17/[id number]-afwo-old female admitted for paroxysmal atrial fibrillation now in sinus rhythm. Presently on sotalol and also on Eliquis 5 mg p.o. twice daily. Plan is to continue the present management. 04/18/2019-patient received only 1 dose of sotalol last night. She was started on 40 mg of sotalol twice a day today we are going to continue to closely monitor the cardiac rhythm and EKGs probably plan to discharge her home tomorrow. Patient has a second episode of paroxysmal atrial fibrillation. Started on Eliquis 5 mg p.o. twice daily. (2) Chest pain Qualifiers: Chest pain type: unspecified Qualified Code(s): R07.9 - Chest pain, unspecified Is this a current diagnosis for this admission?: Yes Plan: Serial cardiac enzymes and EKGs will be performed to evaluate her chest pain. Patient will be on continuous monitoring on IMCU. Morphine sulfate 2 to 4 mg IV every 2 hours will be given on a as needed basis via sliding scale for chest pain. A lipid profile will be obtained to evaluate the patient's ongoing cardiac risk. 04/16/2019-patient initially came in with chest pain 04/16 Most likely secondary to paroxysmal A. fib with RVR. Patient is chest pain- free at the moment. Latest troponin is 0.622. Trending down. Plan is to continue to closely trend cardiac enzymes. 04/17/2019-patient is chest pain-free. Initial troponins are slightly elevated most likely secondary to demand and supply mismatch secondary to atrial fibrillation. 04/18/2019-patient is chest pain-free cardiac enzymes are initially borderline elevated most likely secondary to demand and supply mismatch secondary to atrial fibrillation. Patient is chest pain free for the last 24 hours. (3) Diabetes mellitus type 2 in obese Is this a current diagnosis for this admission?: Yes Plan: Hemoglobin A1c will be obtained to evaluate the patient's blood sugar status. Accu-Cheks will be performed before meals and at bedtime and sliding scale insulin will be used for hyperglycemic readings and hypoglycemic readings will be treated per the hypoglycemia protocol. Patient will be continued on her usual diabetic therapy and a diabetic diet. 04/16/2019-patient has history of type 2 diabetes mellitus latest blood sugar is 193, hemoglobin A1c 7.6. Patient is presently on insulin sliding scale before meals and at bedtime Metformin is going to be on hold and started on Lantus 10 units subcu twice a day. Diet exercise weight loss lifestyle modifications discussed with the patient. 04/17/2019-patient has history of diabetes mellitus latest blood sugar is 186. Presently on insulin sliding scale on the Lantus to 10 units subcu twice a day plan is to continue the present management. Hemoglobin A1c is 7.6. 04/18/2019-she has history of type 2 diabetes mellitus, no history of hypertension latest blood sugar is 154. Hemoglobin A1c 7.6. Presently on Lantus 10 units subcu twice a day and on insulin sliding scale. Plan is to continue the present management. (4) Hypomagnesemia Is this a current diagnosis for this admission?: Yes Plan: Magnesium repletion will be accomplished with intravenous magnesium sulfate. Magnesium levels be monitored closely throughout her hospital stay. 04/16/2019-latest serum magnesium level is 2.1 hypomagnesemia is resolved. 04/18/2019-serum magnesium today is 2.0 hypomagnesemia is resolved. on mag suplementation (5) Hyperlipidemia Qualifiers: Hyperlipidemia type: unspecified Qualified Code(s): E78.5 - Hyperlipidemia, unspecified Is this a current diagnosis for this admission?: Yes (6) Obesity (BMI 30-39.9) Is this a current diagnosis for this admission?: No Plan: 04/16/2019-patient BMI is more than 35 diet exercise weight loss lifestyle modifications are discussed with the patient. - Time Time Spent with patient: 15-24 minutes Medications reviewed and adjusted accordingly: Yes Anticipated discharge: Home
[2019-04-18] MEDS: INSULIN REG, HUMAN 100 UNIT/ML 3 ML VIAL (PYX) SUBCUT SCH ×4 (09:14→23:05)
[2019-04-18] MEDS: SOTALOL HCL 80 MG TABLET PO SCH ×2 (09:17→22:05)
[2019-04-18] MEDS: MAGNESIUM OXIDE 400 MG TABLET PO SCH ×2 (09:17→17:13)
[2019-04-18] MEDS: DOCUSATE SODIUM 100 MG CAPSULE PO SCH ×2 (09:17→17:13)
[2019-04-18] MEDS: APIXABAN 5 MG TABLET PO SCH ×2 (09:17→17:13)
[2019-04-18] MEDS: FAMOTIDINE 20 MG TABLET PO SCH ×2 (09:18→22:05)
[2019-04-18] MEDS: INSULIN GLARGINE,HUM.REC.ANLOG 1,000 UNIT/10 ML VIAL SUBCUT SCH ×2 (09:18→22:06)
--- NOTE | 2019-04-18 17:52 | Progress Note ---
Provider Note Provider Note: CARDIOLOGY PROGRESS NOTE by Dr. Misty Gu on 04/18/2019. SUBJECTIVE: The patient remains in sinus rhythm with no recurrence of atrial fibrillation. The patient denies any chest pain or discomfort. There is no PND orthopnea or orthopnea. There is no bleeding on Eliquis. There is no TIA CVA symptoms. There is no prior arrhythmia on sotalol. Of note yesterday when I checked I found out that the sotalol 40 mill grams p.o. every 12 hours was not found on the chart. He did not go through. Hence the patient was given a dose of sotalol last night after confirming a QTC was acceptable. Subsequently the patient has been receiving sotalol 40 mill grams p.o. every 12 hours. Hence we will keep the patient till tomorrow morning to make sure that there is no proarrhythmia before discharging the patient home. The patient is ambulating without any symptoms. PHYSICAL EXAMINATION: The patient is moderately obese. In no acute distress. Selected Entries 04/18/19 09:09 Temperature 98.2 F Temperature Oral Source Pulse Rate 87 Respiratory 16 Rate Blood Pressure 148/92 H Blood Pressure 110 Mean BP Location Left Arm BP Position Supine O2 Sat by Pulse 94 Oximetry Oxygen Delivery Room Air Method HEAD: Is atraumatic normocephalic. EYES: Pupils are equal round regular reactive to light accommodation. Extraocular movements are normal. There is no conjunctival pallor. There is no scleral icterus. EARS: Tympanic membranes are intact. External auditory canals are clear. NOSE: Nasal mucous membranes are moist. There is no inflammation of the nasal mucous membrane. MOUTH: Mucous membranes of the mouth and tongue are moist. There is no ulcers. THROAT: There is no redness of the oropharynx. There is no exudates. SKIN: There is no skin rashes or skin lesions. There is no petechia or ecchymosis NECK: Is supple there is no JVD. Carotids are equal there is no bruit. There is no lymphadenopathy. There is no goiter. There is no accessory muscle respiration use. Trachea central. LUNGS: Clear to auscultation percussion without any rhonchi rales wheezing. HEART: S1-S2 is heard. S1 is of normal intensity. There is no S3 gallop. There is no S4 gallop. There is systolic murmur left sternal border and the apex there is no rub. ABDOMEN: Is soft. Mildly obese. There is no paraspinal megaly. Bowel sounds well heard. EXTREMITIES: Femorals are deep but well felt. There is no femoral bruits. There is no pedal edema. Leg pulses are well felt. There is no DVT or cellulitis. There is no calf tenderness. There is no cyanosis or clubbing LGSW: The patient is conscious awake alert oriented x3 with no focal deficit. PSYCHIATRIC: The patient judgment and insight are intact her affect is normal. SINUS RHYTHM LEFT AXIS DEVIATION LEFT VENTRICULAR HYPERTROPHY BORDERLINE T ABNORMALITIES, INFERIOR LEADS BORDERLINE PROLONGED QT INTERVAL. QTc is 487 and acceptable. Labs- All tests 24 hr 04/17/19 04/18/19 04/18/19 20:55 05:26 05:26 WBC 7.4 RBC 4.31 Hgb 11.6 L Hct 35.2 L MCV 82 MCH 27.0 MCHC 33.1 RDW 13.4 Plt Count 273 Lymph % (Auto) 33.0 [place] % (Auto) 7.2 Eos % (Auto) 6.3 H Baso % (Auto) 0.4 Absolute Neuts (auto) 3.9 Absolute Lymphs (auto) 2.4 Absolute Monos (auto) 0.5 Absolute Eos (auto) 0.5 Absolute Basos (auto) 0.0 Seg Neutrophils % 53.1 Sodium 137.5 Potassium 4.6 Chloride 100 Carbon Dioxide 26 Anion Gap 12 BUN 13 Creatinine 0.53 Est GFR ( Amer) > 60 Est GFR (MDRD) Non-Af > 60 Glucose 154 H POC Glucose 155 H Calcium 9.3 Magnesium 2.0 Total Bilirubin 0.3 Direct Bilirubin 0.2 Neonat Total Bilirubin Not Reportable Neonat Direct Bilirubin Not Reportable Neonat Indirect Bili Not Reportable AST 47 H ALT 58 Alkaline Phosphatase 93 Troponin I Total Protein 7.0 Albumin 4.0 04/18/19 04/18/19 04/18/19 05:26 09:10 11:35 WBC RBC Hgb Hct MCV MCH MCHC RDW Plt Count Lymph % (Auto) [place] % (Auto) Eos % (Auto) Baso % (Auto) Absolute Neuts (auto) Absolute Lymphs (auto) Absolute Monos (auto) Absolute Eos (auto) Absolute Basos (auto) Seg Neutrophils % Sodium Potassium Chloride Carbon Dioxide Anion Gap BUN Creatinine Est GFR ( Amer) Est GFR (MDRD) Non-Af Glucose POC Glucose 195 H 162 H Calcium Magnesium Total Bilirubin Direct Bilirubin Neonat Total Bilirubin Neonat Direct Bilirubin Neonat Indirect Bili AST ALT Alkaline Phosphatase Troponin I 0.048 Total Protein Albumin 04/18/19 17:06 WBC RBC Hgb Hct MCV MCH MCHC RDW Plt Count Lymph % (Auto) [place] % (Auto) Eos % (Auto) Baso % (Auto) Absolute Neuts (auto) Absolute Lymphs (auto) Absolute Monos (auto) Absolute Eos (auto) Absolute Basos (auto) Seg Neutrophils % Sodium Potassium Chloride Carbon Dioxide Anion Gap BUN Creatinine Est GFR ( Amer) Est GFR (MDRD) Non-Af Glucose POC Glucose 164 H Calcium Magnesium Total Bilirubin Direct Bilirubin Neonat Total Bilirubin Neonat Direct Bilirubin Neonat Indirect Bili AST ALT Alkaline Phosphatase Troponin I Total Protein Albumin IMPRESSION/RECOMMENDATION: 1. Paroxysmal atrial fibrillation. This is the patient's second episode. I do not see any precipitating factors, and the patient's thyroid function tests are within normal limits. Hence we will start the patient on sotalol, with careful watch on proarrhythmias and also daily EKGs for QTC vigilance, and also start the patient on Eliquis 5 mill grams p.o. twice daily. 2. Elevated troponin: No evidence of non-ST elevation [place]. This is secondary to the patient's electrical cardioversion, and the patient atrial fibrillation with rapid ventricular response. Later would recommend that the patient have an IV Lexiscan cardiac stress test. This can be done as an outpatient. 3. Diabetes mellitus: Type II [id number]. Continue current medication and Accu-Cheks. 4. Dyslipidemia and hypertriglyceridemia. Note that the patient's LDL levels a good. The HDL levels are low. The patient's triglycerides levels are very high. Would recommend dietary consult. And tight control of her blood sugars 5. Obesity. Medications reviewed. Management plan discussed with attending physician on the case. Medical decision making is of moderate to high complexity. Will follow. 40 minutes spent on this patient with more than 50% of time spent in direct patient care. Patient stability continues hopefully will discharge the patient in a.m.
[2019-04-18] MEDS: ATORVASTATIN CALCIUM 20 MG TABLET PO SCH (22:05)
[2019-04-18] MEDS: ZOLPIDEM TARTRATE 5 MG TABLET PO PRN (22:15)
[2019-04-19 05:44] LABS: ALBUMIN 4.1 g/dL (3.5-5.0); ALKALINE PHOSPHATASE 99 U/L (38-126); ANION GAP 11 (5-19); ASPARTATE AMINO TRANSFERASE 64 U/L (14-36); BILIRUBIN,DIRECT 0.2 mg/dL (0.0-0.4); BILIRUBIN,TOTAL 0.4 mg/dL (0.2-1.3); BLOOD UREA NITROGEN 16 mg/dL (7-20); CALCIUM 9.2 mg/dL (8.4-10.2); CARBON DIOXIDE 25 mmol/L (22-30); CHLORIDE 101 mmol/L (98-107); GLUCOSE 160 mg/dL (75-110); POTASSIUM 4.5 mmol/L (3.6-5.0); TOTAL PROTEIN 7.4 g/dL (6.3-8.2)
[2019-04-19 05:48] LABS: ABSOLUTE BASOPHILS # (AUTO) 0.1 10^3/uL (0.0-0.2); ABSOLUTE EOSINOPHILS # (AUTO) 0.5 10^3/uL (0.0-0.6); ABSOLUTE MONOCYTES (AUTO) 0.5 10^3/uL (0.1-1.4); ABSOLUTE NEUT (AUTO) 4.3 10^3/uL (1.7-8.2); BASOPHILS % (AUTO) 0.8 % (0-2); EOSINOPHILS % (AUTO) 5.6 % (0-6); HEMATOCRIT 38.1 % (36.0-47.0); HEMOGLOBIN 12.1 g/dL (12.0-15.5); LYMPHOCYTES % (AUTO) 36.1 % (13-45); MEAN CORPUSCULAR HEMOGLOBIN 25.7 pg (27.0-33.4); MEAN CORPUSCULAR HGB CONC 31.7 g/dL (32.0-36.0); MEAN CORPUSCULAR VOLUME 81 fl (80-97); MONOCYTES % (AUTO) 5.6 % (3-13); PLATELET COUNT 202 10^3/uL (150-450); RED BLOOD COUNT 4.68 10^6/uL (3.72-5.28); RED CELL DISTRIBUTION WIDTH 13.6 % (11.5-14.0); SEGMENTED NEUTROPHILS % (AUTO) 51.9 % (42-78); TOTAL CELLS COUNTED % (AUTO) 100 %; WHITE BLOOD COUNT 8.3 10^3/uL (4.0-10.5)
--- NOTE | 2019-04-19 09:51 | PDOC DISCHARGE SUMMARY ---
General - Admit/Disc Date/PCP Admission Date/Primary Care Provider: 04/15/19 19:47 Discharge Date: 04/19/19 - Discharge Diagnosis (1) Paroxysmal atrial fibrillation with rapid ventricular response Is this a current diagnosis for this admission?: Yes Summary: Patient's atrial fibrillation will be treated with a diltiazem infusion and conversion to oral diltiazem. A cardiology consultation with Dr. Gu will be obtained for possible consideration of cardioversion or determination of ongoing therapy. Patient will be treated with Lovenox 1 mg/kg subcu every 12 hours. Patient be monitored closely on IMCU. Daily metabolic profiles with magnesium levels and CBCs will be obtained. A thyroid profile will be obtained to evaluate the patient's thyroid status as it may relate to her atrial fibrillation. 04/16/2019-patient is in sinus rhythm with heart rate is around 60. On p.o. Cardizem 90 mg every 6 hours. Cardiology consult was requested. Echocardiogram pending. Plan is to decrease the Cardizem to 90 mg p.o. every 8 hours. Plan is to continue to closely monitor her until tomorrow. TSH is 2.85 within normal range. On treatment dose of Lovenox 110 mg subcu every 12 hours. 04/17/[id number]-nwhb-old female admitted for paroxysmal atrial fibrillation now in sinus rhythm. Presently on sotalol and also on Eliquis 5 mg p.o. twice daily. Plan is to continue the present management. 04/18/2019-patient received only 1 dose of sotalol last night. She was started on 40 mg of sotalol twice a day today we are going to continue to closely monitor the cardiac rhythm and EKGs probably plan to discharge her home tomorrow. Patient has a second episode of paroxysmal atrial fibrillation. Started on Eliquis 5 mg p.o. twice daily. 04/[id number]-vvxq-old female admitted with A. jazlyn with RVR on the way to the hospital has a cardioversion and initially she is on Cardizem drip later on changed to sotalol 40 mg p.o. every 12 hours and that she was started on Eliquis monitor no cardiac arrhythmias noticed in the last 24 hours. Alert and awake communicating well. Expressing desire to go home today. Patient is advised to follow-up with Dr. Gu as an outpatient. (2) Chest pain Is this a current diagnosis for this admission?: Yes Summary: Serial cardiac enzymes and EKGs will be performed to evaluate her chest pain. Patient will be on continuous monitoring on IMCU. Morphine sulfate 2 to 4 mg IV every 2 hours will be given on a as needed basis via sliding scale for chest pain. A lipid profile will be obtained to evaluate the patient's ongoing cardiac risk. 04/16/2019-patient initially came in with chest pain 04/16 Most likely secondary to paroxysmal A. fib with RVR. Patient is chest pain- free at the moment. Latest troponin is 0.622. Trending down. Plan is to continue to closely trend cardiac enzymes. 04/17/2019-patient is chest pain-free. Initial troponins are slightly elevated most likely secondary to demand and supply mismatch secondary to atrial fibrillation. 04/18/2019-patient is chest pain-free cardiac enzymes are initially borderline elevated most likely secondary to demand and supply mismatch secondary to atrial fibrillation. Patient is chest pain free for the last 24 hours. An [id number]-patient came with complaints of chest pain with slightly elevated troponins elevated troponins most likely secondary to A. fib with RVR and also due to the fact that cardioversion was done. (3) Diabetes mellitus type 2 in obese Is this a current diagnosis for this admission?: Yes (4) Hypomagnesemia Is this a current diagnosis for this admission?: Yes (5) Hyperlipidemia Is this a current diagnosis for this admission?: Yes (6) Obesity (BMI 30-39.9) Is this a current diagnosis for this admission?: No - Additional Information Resuscitation Status: Full Code Discharge Diet: Diabetic Discharge Activity: Activity As Tolerated Prescriptions: Sotalol HCl [Betapace 80 mg Tablet] 40 mg PO Q12 #60 tablet Apixaban [Eliquis 5 mg Tablet] 5 mg PO BID #60 tablet Home Medications: Atorvastatin Calcium [Lipitor 20 mg Tablet] 20 mg PO DAILY 04/15/19 Metformin HCl [Metformin HCl ER] 1,000 mg PO BID 04/15/19 Sitagliptin Phosphate [Januvia] 100 mg PO DAILY 04/15/19 Apixaban [Eliquis 5 mg Tablet] 5 mg PO BID #60 tablet 04/19/19 Sotalol HCl [Betapace 80 mg Tablet] 40 mg PO Q12 #60 tablet 09/08/19 History of Present Illness History of Present Illness: NIKOS GONZALEZ is a 48 year old female 48 year old female who presented to the emergency room via EMS with a acute heart palpitations. She admits the sudden onset of palpitations this afternoon for which she summoned EMS immediately. Palpitations were associated with a constant, moderately intense substernal chest pressure without radiation and moderate dyspnea at rest worsened with any exertion. She denies other associated or accompanying signs and symptoms. She admits a prior similar episode due to a paroxysmal occurrence of atrial fibrillation. She denies identification of any aggravating or ameliorating factors for her heart palpitations. EMS initially treated the patient with cardioversion (as her atrial fibrillation heart rate was greater than 250 and she was symptomatic) followed by a diltiazem bolus and infusion. Upon her arrival in the emergency room patient was re-bolused with diltiazem and her infusion rate was increased in order to gain adequate control of her atrial fibrillation with rapid ventricular response. Patient was subsequently admitted to the [facility] for further evaluation treatment. 04/19/[id number]-spgj-old female admitted with paroxysmal atrial fibrillation with rapid ventricular rate started on sotalol 40 mg p.o. twice daily and also Eliquis 5 mg p.o. twice daily. No acute events in the last 48 hours. Patient is going home today I strongly advised her to follow-up with primary care physician and also with Dr. Gu in 7 to 10 days. Physical Exam Vital Signs: Temp Pulse Resp BP Pulse Ox 97.7 F 77 20 125/77 94 04/19/19 04:17 04/19/19 06:48 04/19/19 04:17 04/19/19 04:17 04/19/19 04:17 Intake & Output 04/18/19 04/19/19 04/20/19 06:59 06:59 06:59 Intake Total 840 1210 Output Total 0 Balance 840 1210 Weight 114.1 kg 111.9 kg General appearance: PRESENT: no acute distress Head exam: PRESENT: atraumatic Eye exam: PRESENT: PERRLA Mouth exam: PRESENT: neck supple Teeth exam: PRESENT: poor dentation Neck exam: ABSENT: carotid bruit, JVD, lymphadenopathy, thyromegaly Respiratory exam: PRESENT: decreased breath sounds Cardiovascular exam: PRESENT: RRR. ABSENT: diastolic murmur, rubs, systolic murmur GI/Abdominal exam: PRESENT: normal bowel sounds, soft. ABSENT: distended, guarding, mass, organolmegaly, rebound, tenderness Rectal exam: PRESENT: deferred Neurological exam: PRESENT: alert, awake, oriented to person, oriented to place, oriented to time, oriented to situation, CN II-XII grossly intact. ABSENT: mo tor sensory deficit Psychiatric exam: PRESENT: appropriate affect, normal mood. ABSENT: homicidal ideation, suicidal ideation Results Laboratory Results: 04/19/19 05:15 04/19/19 05:15 04/19/19 04/19/19 05:15 05:15 WBC 8.3 RBC 4.68 Hgb 12.1 Hct 38.1 MCV 81 MCH 25.7 L MCHC 31.7 L RDW 13.6 Plt Count 202 Seg Neutrophils % 51.9 Sodium 136.7 L Potassium 4.5 Chloride 101 Carbon Dioxide 25 Anion Gap 11 BUN 16 Creatinine 0.57 Est GFR ( Amer) > 60 Glucose 160 H Calcium 9.2 Magnesium 1.9 Total Bilirubin 0.4 AST 64 H Alkaline Phosphatase 99 Total Protein 7.4 Albumin 4.1 04/15/19 04/15/19 04/15/19 17:17 17:17 23:09 Creatine Kinase 55 63 CK-MB (CK-2) 0.31 Troponin I 0.022 NT-Pro-B Natriuret Pep 04/15/19 04/16/19 04/16/19 23:09 05:21 05:21 Creatine Kinase 58 CK-MB (CK-2) 1.45 1.70 Troponin I 0.915 0.622 NT-Pro-B Natriuret Pep 04/16/19 04/16/19 04/17/19 11:18 11:18 04:25 Creatine Kinase 52 CK-MB (CK-2) 1.40 Troponin I 0.332 NT-Pro-B Natriuret Pep 183 H 04/18/19 05:26 Creatine Kinase CK-MB (CK-2) Troponin I 0.048 NT-Pro-B Natriuret Pep Impressions: Chest X-Ray 04/15/19 17:35 IMPRESSION: No evidence of acute cardiopulmonary process. Qualifiers - * PATIENT BEING DISCHARGED WITH ANY OF THE FOLLOWING DIAGNOSIS: No VTE patient discharged on overlapping Therapy?: No Acute Heart Failure - Is this a Heart Failure Patient?: No Plan Time Spent: Greater than 30 Minutes
[2019-04-19] MEDS: DOCUSATE SODIUM 100 MG CAPSULE PO SCH (09:54)
[2019-04-19] MEDS: APIXABAN 5 MG TABLET PO SCH (09:54)
[2019-04-19] MEDS: MAGNESIUM OXIDE 400 MG TABLET PO SCH (09:54)
[2019-04-19] MEDS: SOTALOL HCL 80 MG TABLET PO SCH (09:54)
[2019-04-19] MEDS: INSULIN GLARGINE,HUM.REC.ANLOG 1,000 UNIT/10 ML VIAL SUBCUT SCH (09:55)
[2019-04-19] MEDS: INSULIN REG, HUMAN 100 UNIT/ML 3 ML VIAL (PYX) SUBCUT SCH ×2 (09:58→12:20)
[2019-04-19] MEDS: FAMOTIDINE 20 MG TABLET PO SCH (09:58)
[2019-04-19 10:42] VITALS: BP 131/82
--- NOTE | 2019-04-19 19:07 | EKG REPORT ---
SEVERITY:- ABNORMAL ECG - SINUS RHYTHM LEFT AXIS DEVIATION LEFT VENTRICULAR HYPERTROPHY BORDERLINE T ABNORMALITIES, INFERIOR LEADS BORDERLINE PROLONGED QT INTERVAL : Confirmed by: Rick Burrows 19-Apr-2019 19:07:23
--- NOTE | 2019-04-19 19:08 | EKG REPORT ---
SEVERITY:- ABNORMAL ECG - SINUS RHYTHM LEFT AXIS DEVIATION LEFT VENTRICULAR HYPERTROPHY BORDERLINE T ABNORMALITIES, INFERIOR LEADS PROLONGED QT INTERVAL : Confirmed by: Rick Burrows 19-Apr-2019 19:07:55
--- NOTE | 2019-04-19 21:30 | Progress Note ---
Provider Note Provider Note: CARDIOLOGY PROGRESS NOTE by Dr. Misty Gu on 04/19/2019. SUBJECTIVE: The patient remains in sinus rhythm. There is no proarrhythmias. The patient denies any chest pain or discomfort. There is no PND orthopnea. There is no bleeding on Eliquis. There is no TIA CVA symptoms. The patient is anxious to go home. The patient's QTC is acceptable. PHYSICAL EXAMINATION: The patient is moderately obese, but well-groomed in no acute distress. Selected Entries 04/19/19 04/19/19 09:41 10:02 Temperature 98.2 F 97.7 F Temperature Oral Source Pulse Rate 78 77 Respiratory 16 Rate Blood Pressure 131/82 H Blood Pressure 98 Mean BP Location Left Arm BP Position Supine O2 Sat by Pulse 95 Oximetry Oxygen Delivery Room Air Method HEAD: Is atraumatic normocephalic. EYES: Pupils are equal round regular reactive to light accommodation. Extraocular movements are normal. There is no conjunctival pallor. There is no scleral icterus. EARS: Tympanic membranes are intact. External auditory canals are clear. NOSE: Nasal mucous membranes are moist. There is no inflammation of the nasal mucous membrane. MOUTH: Mucous membranes of the mouth and tongue are moist. There is no ulcers. THROAT: There is no redness of the oropharynx. There is no exudates. SKIN: There is no skin rashes or skin lesions. There is no petechia or ecchymosis NECK: Is supple there is no JVD. Carotids are equal there is no bruit. There is no lymphadenopathy. There is no goiter. There is no accessory muscle respiration use. Trachea central. LUNGS: Clear to auscultation percussion without any rhonchi rales wheezing. HEART: S1-S2 is heard. S1 is of normal intensity. There is no S3 gallop. There is no S4 gallop. There is systolic murmur left sternal border and the apex there is no rub. ABDOMEN: Is soft. Mildly obese. There is no paraspinal megaly. Bowel sounds well heard. EXTREMITIES: Femorals are deep but well felt. There is no femoral bruits. There is no pedal edema. Leg pulses are well felt. There is no DVT or cellulitis. There is no calf tenderness. 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 PSYCHIATRIC: The patient judgment and insight are intact her affect is normal. EKG: Shows sinus rhythm. Left axis deviation. Left ventricle hypertrophy. QTC is 505 and acceptable. There is minor nonspecific T changes inferior leads. Labs- All tests 24 hr 04/18/19 04/19/19 04/19/19 21:54 05:15 05:15 WBC 8.3 RBC 4.68 Hgb 12.1 Hct 38.1 MCV 81 MCH 25.7 L MCHC 31.7 L RDW 13.6 Plt Count 202 Lymph % (Auto) 36.1 [place] % (Auto) 5.6 Eos % (Auto) 5.6 Baso % (Auto) 0.8 Absolute Neuts (auto) 4.3 Absolute Lymphs (auto) 3.0 Absolute Monos (auto) 0.5 Absolute Eos (auto) 0.5 Absolute Basos (auto) 0.1 Seg Neutrophils % 51.9 Sodium 136.7 L Potassium 4.5 Chloride 101 Carbon Dioxide 25 Anion Gap 11 BUN 16 Creatinine 0.57 Est GFR ( Amer) > 60 Est GFR (MDRD) Non-Af > 60 Glucose 160 H POC Glucose 157 H Calcium 9.2 Magnesium 1.9 Total Bilirubin 0.4 Direct Bilirubin 0.2 Neonat Total Bilirubin Not Reportable Neonat Direct Bilirubin Not Reportable Neonat Indirect Bili Not Reportable AST 64 H ALT 69 Alkaline Phosphatase 99 Total Protein 7.4 Albumin 4.1 04/19/19 04/19/19 09:43 12:13 WBC RBC Hgb Hct MCV MCH MCHC RDW Plt Count Lymph % (Auto) [place] % (Auto) Eos % (Auto) Baso % (Auto) Absolute Neuts (auto) Absolute Lymphs (auto) Absolute Monos (auto) Absolute Eos (auto) Absolute Basos (auto) Seg Neutrophils % Sodium Potassium Chloride Carbon Dioxide Anion Gap BUN Creatinine Est GFR ( Amer) Est GFR (MDRD) Non-Af Glucose POC Glucose 210 H 146 H Calcium Magnesium Total Bilirubin Direct Bilirubin Neonat Total Bilirubin Neonat Direct Bilirubin Neonat Indirect Bili AST ALT Alkaline Phosphatase Total Protein Albumin Chest X-Ray 04/15/19 17:35 IMPRESSION: No evidence of acute cardiopulmonary process. IMPRESSION/RECOMMENDATION: 1. Paroxysmal atrial fibrillation. This is the patient's second episode. I do not see any precipitating factors, and the patient's thyroid function tests are within normal limits. Hence we will start the patient on sotalol, with careful watch on proarrhythmias and also daily EKGs for QTC vigilance, and also start the patient on Eliquis 5 mill grams p.o. twice daily. 2. Elevated troponin: No evidence of non-ST elevation [place]. This is secondary to the patient's electrical cardioversion, and the patient atrial fibrillation with rapid ventricular response. Later would recommend that the patient have an IV Lexiscan cardiac stress test. This can be done as an outpatient. 3. Diabetes mellitus: Type II [id number]. Continue current medication and Accu-Cheks. 4. Dyslipidemia and hypertriglyceridemia. Note that the patient's LDL levels a good. The HDL levels are low. The patient's triglycerides levels are very high. Would recommend dietary consult. And tight control of her blood sugars 5. Murmur most likely mitral regurgitation? Significance. We will get an outpatient echocardiogram. 6. Obesity. Medications reviewed. Management plan discussed with attending physician on the case. Medical decision making is of moderate complexity. Will sign off and follow the patient in the office. Will arrange for the patient to have an outpatient 30-day event monitor, echocardiogram to assess left atrial size for atrial fibrillation, and presence of any mitral regurgitation of significance. We will also schedule the patient for IV Lexiscan Cardiolite stress test.
== END 2019-04-19 12:45 | disposition home or self-care (01) | DRG 310 ==
LOC: ER 17:04 → EH 19:47 → 3W 21:25
PROVIDERS: ADMIT Emergency Medicine; ATTEND Emergency Medicine
DX: I48.0 Paroxysmal atrial fibrillation (principal); E78.5 Hyperlipidemia, unspecified; E83.42 Hypomagnesemia; E66.9 Obesity, unspecified; R79.89 Other specified abnormal findings of blood chemistry; E11.9 Type 2 diabetes mellitus without complications; Z90.49 Acquired absence of other specified parts of digestive tract; Z87.828 Personal history of other (healed) physical injury and trauma; Z79.84 Long term (current) use of oral hypoglycemic drugs
CPT/HCPCS: 36415; 71045; 80048; 80053; 80061; 81001; 82550; 82553; 82962; 83036; 83605; 83735; 83880; 84439; 84443; 84481; 84484; 85025; 85027; 85610; 93005; 93010; 96374; 99285; J1650; J1815; J3475; J3490